=== PATIENT | female | born 1995 | race American Indian/Alaskan Native ===

== ENCOUNTER 2017-06-13 16:14 | Emergency (ER) | payer MEDICAID, OTHER ==
[2017-06-13 16:28] VITALS: BP 113/66
--- NOTE | 2017-06-13 17:08 | Emergency Department Report ---
ED Rash HPI - HPI Chief Complaint: Skin Rash Stated Complaint: RASH Time Seen by Provider: 06/13/17 16:47 Duration: 1 week Location: Back, Abdomen, Upper Extremities, Lower Extremities Suspected Cause: Unknown Rash Symptoms: Yes Itching (arms and legs and back), No Facial Swelling, No Tongue/Oral Swelling, No Breathing Difficulties, No Choking Sensation, No Wheezing/Dyspnea, No Peeling, No Blistering, No Fever, No Lightheaded, No Malaise, No Myalgias Severity: moderate Other History: PT report that she has rash to her arms and legsback and abdomen times one week. Denies any pain but reports itching. She is unable to tell me if she was exposed to anything new in her environment. She cannot remember being bitten by any insect. Denies nausea or vomiting. Has any fever or chills. Denies any respiratory symptoms. Pain is 0 out of 10 per patient ED Review of Systems ROS: Stated complaint: RASH Other details as noted in HPI Comment: All other systems reviewed and negative Constitutional: denies: chills, fever ENT: denies: ear pain, throat pain, congestion Respiratory: no symptoms reported Cardiovascular: denies: chest pain, palpitations, edema, syncope Gastrointestinal: denies: abdominal pain, nausea, vomiting Musculoskeletal: denies: back pain, joint swelling, arthralgia, myalgia Skin: rash, pruritus Neurological: denies: headache, weakness ED Past Medical Hx - Past Medical History Previous Medical History?: No - Surgical History Past Surgical History?: No - Family History Family history: no significant - Social History Smoking Status: Never Smoker Substance Use Type: None - Medications Home Medications: Home Medications Medication Instructions Recorded Confirmed Last Taken Type traMADol [Ultram 50 MG tab] 50 mg PO Q6HR PRN #14 tablet 03/10/15 Unknown Rx hydrOXYzine HCL [Atarax] 25 mg PO Q6HR PRN #12 tablet 06/13/17 Unknown Rx methylPREDNISolone [Medrol] 4 mg PO QAM #1 tab.ds.pk 06/13/17 Unknown Rx Rash Exam - Exam General: Vital signs noted. No distress. Alert and acting appropriately. This is a 21-year-old female well-nourished well-developed in no acute distress. HEENT: No Periorbital Edema, No Conjuctival Injection, No Chemosis, No Perioral Edema, No Tongue Edema, No Uvular Edema, No Compromised Airway, No Drooling Lungs: Yes Good Air Exchange, No Wheezes, No Ronchi, No Stridor, No Cough, No Labored Respirations, No Retractions, No Use of Accessory Muscles, No Other Abnormal Lung Sounds Heart: Yes Regular, No Murmur Skin: Yes Maculopapular Rash (scattered sparsely to bilateral lower extremity, bilateral upper extremity abdomen and back.), Yes Erythema, No Urticarial Rash, No Morbilliform rash, No Bulla(e), No Excoriations, No Weeping, No Tenderness, No Edema, No Encrustations, No Other Other: Positive: Abdomen Normal, Neurologic Normal, Musculoskeletal Normal ED Course Vital Signs 06/13/17 16:26 Temperature 98.8 F Pulse Rate 68 Respiratory 16 Rate Blood Pressure 113/66 O2 Sat by Pulse 100 Oximetry - Reevaluation(s) Reevaluation #1: 06/13/17 17:11 Uneventful ED stay ED Medical Decision Making - Medical Decision Making MDM: Patient here reports that she has a rash to her body for over 1 week with itching. She was found to have maculopapular rash of unknown cause and itching. I discussed the patient treatment plan and diagnosis that she is in agreement. 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 Patient is in agreement. Labs: Needs for lab. Previous visit: last here and treated for pain in 2014 Plan: Start home to follow-up with [facility] and filtration plant operator, Medrol Dosepak and Atarax.. Tetanus vaccine is up-to-date. Informed to get allergy skin testing. discharged home in stable condition. Critical care attestation.: If time is entered above; I have spent that time in minutes in the direct care of this critically ill patient, excluding procedure time. ED Disposition Clinical Impression: Pruritic dermatitis Contact dermatitis Qualifiers: Contact dermatitis type: unspecified Contact dermatitis trigger: unspecified trigger Qualified Code(s): L25.9 - Unspecified contact dermatitis, unspecified cause Disposition: - TO HOME OR SELFCARE Is pt being admited?: No Does the pt Need Aspirin: No Condition: Stable Instructions: Contact Dermatitis (ED), Itchy Skin (ED) Additional Instructions: Please keep affected areas clean and dry Using medication as prescribed Followup with primary care and filtration plant operator as instructed Atarax can cause drowsiness of present drive or operate heavy machinery while taking this medication Prescriptions: hydrOXYzine HCL [Atarax] 25 mg PO Q6HR PRN #12 tablet PRN Reason: Itching methylPREDNISolone [Medrol] 4 mg PO QAM #1 tab.ds.pk Referrals: PRIMARY CARE, [Primary Care Provider] - 3-5 Days Forms: Work/School Release Form(ED)
== END 2017-06-13 19:00 | disposition home or self-care (01) ==
LOC: ED 16:14
DX: L25.9 Unspecified contact dermatitis, unspecified cause (principal); L29.9 Pruritus, unspecified
CPT/HCPCS: 99282